=== PATIENT | male | born 1970 | race Caucasian/White ===

== ENCOUNTER 2018-07-14 19:44 | Emergency (ER) | payer OTHER ==
[2018-07-14 19:50] VITALS: BP 139/95
--- NOTE | 2018-07-14 20:08 | EDPHY ---
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 He states that he last used Ativan yesterday. He originally began taking it for anxiety but then began taking a recreationally up to about 10 pills per day. He has also been drinking alcohol and states that he stopped yesterday. He does not show any tremors or tachycardia. He states that he has had seizures from alcohol withdrawal before. He was in [facility] for 3 days last week but return to the substances after discharge. Severity: Moderate Modifying factors: Currently asymptomatic REVIEW OF SYSTEMS: Constitutional: denies: chills, fever, recent illness, recent injury EENTM: denies: blurred vision, double vision, nose congestion Respiratory: denies: cough, shortness of breath Cardiac: denies: chest pain, irregular heart rate, lightheadedness, palpitations Gastrointestinal/Abdominal: denies: abdominal pain, diarrhea, nausea, vomiting, blood streaked stools Genitourinary: denies: dysuria, frequency, hematuria, pain Musculoskeletal: denies: joint pain, muscle pain Skin: denies: lesions, rash, jaundice, bruising Neurological: denies: headache, numbness, paresthesia, tingling, dizziness, weakness Hematologic/Lymphatic: denies: blood clots, easy bleeding, easy bruising Immunologic/allergic: denies: HIV/AIDS, transplant 10 systems reviewed and negative except as noted EXAM: GENERAL: Well-appearing, well-nourished and in no acute distress. HEAD: Atraumatic, normocephalic. EYES: Pupils equal round and reactive to light, extraocular movements intact, sclera anicteric, conjunctiva are normal. ENT: TMs normal, nares patent, oropharynx clear without exudates. Moist mucous membranes. NECK: Normal range of motion, supple without lymphadenopathy or JVD. LUNGS: Breath sounds clear to auscultation bilaterally and equal. No wheezes rales or rhonchi. HEART: Regular rate and rhythm without murmurs, rubs or gallops. ABDOMEN: Soft, nontender, normoactive bowel sounds. No guarding, no rebound. No masses appreciated. BACK: No CVA tenderness, no spinal tenderness, step-offs or deformities EXTREMITIES: Normal range of motion, no pitting or edema. No clubbing or cyanosis. NEUROLOGICAL: Cranial nerves II through XII grossly intact. Normal speech, normal gait. 5/5 strength, normal movement in all extremities, normal sensation , normal reflexes PSYCH: Normal mood, normal affect. SKIN: Warm, dry, normal turgor, no visible rashes or lesions. Source: Patient Exam Limitations: No limitations - Personal History Current Tetanus/Diphtheria Vaccine: Yes Current Tetanus Diphtheria and Acellular Pertussis (TDAP): Yes - Medical/Surgical History Hx Asthma: No Hx Chronic Respiratory Disease: No Hx Diabetes: No Hx Cardiac Disease: No Hx Renal Disease: No Hx Cirrhosis: No Hx Alcoholism: No Hx HIV/AIDS: No Hx Splenectomy or Spleen Trauma: No Other PMH: alcohol seizures, high cholesterol - Family History Significant Family History: No pertinent family hx - Social History Smoking Status: Heavy smoker Alcohol Use: Heavy Drug Use: Other Constitutional: Initial Vital Signs Temperature (C) 36.5 C 07/14/18 19:48 Heart Rate 105 H 07/14/18 19:48 Respiratory Rate 20 07/14/18 19:48 Blood Pressure 139/95 H 07/14/18 19:48 O2 Sat (%) 98 07/14/18 19:48 O2 Delivery Mode Room Air Allergies/Adverse Reactions: No Known Allergies Allergy (Unverified 07/14/18 19:47) Home Medications: Medication Instructions Recorded NK [No Known Home Meds] 07/14/18 Medical Decision Making ED Course/Re-evaluation: preconstruction manager is not available and neither is mental health currently. Patient was recently at [facility]. Will calling them to see if he can return there to be evaluated for further treatment. 8:30 p.m we were able to contact [facility]. They state that they can make an appointment to me with him tomorrow. 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 We have been arranging this. The patient is happy with this plan. We discussed indications for returning. Differential Diagnosis: Partial list of the Differential diagnosis considered include but were not limited to; polysubstance abuse, withdrawal, and although unlikely based on the history and physical exam, I also considered head injury, infection. Departure - Departure Disposition: Home, Routine, Self-Care Clinical Impression: Polysubstance abuse Condition: Fair Instructions: Polysubstance Abuse (ED) Additional Instructions: Call [facility] at [phone] to set up an appointment. Referrals: NONE *PRIMARY CARE P,. [Primary Care Provider] - As per Instructions [facility],. [Clinic] - 2-3 days, call for appt.
== END 2018-07-14 20:40 | disposition home or self-care (01) ==
DX: F19.10 Other psychoactive substance abuse, uncomplicated (principal); F10.10 Alcohol abuse, uncomplicated; F17.200 Nicotine dependence, unspecified, uncomplicated

== ENCOUNTER 2018-07-17 15:00 | Inpatient (IN) | payer OTHER ==
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
[2018-07-17 15:38] LABS: PLATELET COUNT 293 10^3/uL (150-400)
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
--- NOTE | 2018-07-17 23:26 | ASMTTCLDSP ---
TLC Discharge Disposition Disposition: Answers: Admit Discharge Concerns/Recommendations: Notes: In consultation with [facility] ED physician,Dr Daugherty ,and on-call psychiatrist,Dr Hill , both concurred that Pt appears to meet 27-65 criteria requiring psychiatric hospitalization as Pt appears to be at risk of harm to self due to a mental illness condition. Pt was given the 3N prohibited belongings list while in the ED. Was patient given the Answers: Yes Inpatient Behavioral Health Prohibited Belongings List while in the ED? For inpatient Dr Hill admission, the following psychiatrist agreed to accept patient for admission to Behavioral Health ([facility]): Type of Hold: Answers: M1/72-hour Hold Hold initiated by: Answers: ED Physician Date Signed: 07/17/2018 11:25 PM Electronically Signed By:Luz Marina Elena
[2018-07-18] MEDS ORDERED: ACETAMINOPHEN 325 MG TAB PO PRN (01:00)
[2018-07-18] MEDS ORDERED: NICOTINE POLACRILEX 2 MG GUM B PRN (01:00)
[2018-07-18] MEDS ORDERED: MAGNESIUM HYDROXIDE 30 ML UDCUP PO PRN (01:00)
[2018-07-18] MEDS ORDERED: LORazepam 0.5 MG TAB PO PRN (01:00)
[2018-07-18] MEDS ORDERED: MAG HYDROX/AL HYDROX/SIMETH 30 ML UDCUP PO PRN (01:00)
[2018-07-18] MEDS ORDERED: OLANZapine 5 MG TAB PO PRN (01:01)
[2018-07-18] MEDS ORDERED: chlordiazePOXIDE 25 MG CAP PO PRN ×2 (09:16→11:48)
[2018-07-18] MEDS ORDERED: chlordiazePOXIDE 25 MG CAP PO SCH (11:05)
--- NOTE | 2018-07-18 13:00 | ASMTBHMTP ---
[facility] Master Treatment Plan Master Treatment Plan Answers: Depressed Mood with for: Suicidal Ideation Date: 07/18/2018 Diagnosis on Admission: Bipolar I Disorder, current or most recent episode depressed, severe 296.53 Expected length of stay: 3-5 Days Reason for admission: Notes: Pt. is a 47 year old, homeless, man who self-presented to the ED with a plan to cut his wrist with a razor blade. The ED physician placed him on an M1 hold. Per M1 hold, "pt is depressed, suicidal, probably off Depakote, homeless, substance abuse. Patient's stated presenting problems: Notes: Pt. reports he was feeling depressed and having thoughts of suicide Patient's goals for treatment: Notes: "Get back on medications" Patient's strengths: Notes: Generous Identify supports outside of hospital: Notes: [facility] Discharge criteria: Notes: Suicidal ideation will resolve and patient will have a plan to safely manage recurrent suicidal ideation. Initial disposition plan/considerations: Notes: Pt. stated he wants to take a bus to [place] Master Treatment Plan Required Signatures Psychiatrist signature: Answers: Psychiatrist: RN on-shift signature: Answers: RN: Patient signature: Answers: Patient: Date Signed: 07/18/2018 12:38 PM Electronically Signed By:Sari Menendez
--- NOTE | 2018-07-18 13:42 | BCON ---
INTERNAL MEDICINE CONSULTATION DATE OF CONSULTATION: 07/18/2018 REFERRING PHYSICIAN: Pattie Hill MD REASON FOR REFERRAL: Medical clearance for inpatient behavioral health stay. HISTORY OF PRESENT ILLNESS: This patient came to the emergency department with suicidal ideation. He was homeless. He had recently been inpatient at [facility]. He was evaluated by the mental health team and admitted for further psychiatric care. Currently, he is without any acute complaints. PAST MEDICAL HISTORY: 1. Bipolar disorder. 2. Dyslipidemia. 3. Alcohol use disorder. PAST SURGICAL HISTORY: He denies any surgeries. MEDICATIONS: He was on no medications, but in the past had been taking valproic acid and a medication for cholesterol. ALLERGIES: There are no known drug allergies. SOCIAL HISTORY: He is homeless and per the family service caseworker's note, he had been working in [place] and was traveling to [place]. He is a smoker, and he has a history of alcohol use disorder. FAMILY HISTORY: Noncontributory regarding medical issues. REVIEW OF SYSTEMS: He reports he feels a little bit shaky. He denies sweats. He has some nausea, but he has a good appetite. He denies constipation or diarrhea. There is no abdominal pain. He has no chest pain or palpitations. He denies cough or dyspnea. Otherwise, a 10-point review of systems is negative. PHYSICAL EXAM: VITAL SIGNS: Blood pressure is 130/78, heart rate is 92, respiratory rate is 16, oxygen saturation is 95% on room air, temperature is 36.7 degrees centigrade. His weight is 90.7 kg for a body mass index of 27.9. GENERAL: This is an overweight man. Sitting at the dining table, eating lunch. Dressed in a green hospital smock. Cooperative. In no acute distress. HEENT: Extraocular movements are intact. Pupils are equal, round, and reactive to light. Mucous membranes are moist. Dentition is in good condition. NECK: Supple. HEART: There is a regular rate and rhythm. He is tachycardic. LUNGS: Clear to auscultation bilaterally. ABDOMEN: Benign. EXTREMITIES: There is no cyanosis, clubbing, or edema. NEUROLOGIC: He is alert and oriented x3. He has a flat affect. Cranial nerves 2 through 12 are grossly intact. There is no focal weakness, and sensation is intact to light touch. LABORATORY STUDIES: From the emergency department: CBC was normal. Serum chemistries revealed normal renal function and electrolytes. Glucose was slightly elevated at 126, but it was likely not fasting. Hemoglobin A1c was 5.1. Liver function tests were normal. Lipid panel revealed elevated triglycerides at 298, elevated cholesterol at 217, elevated LDL at 115, and an HDL at 42. TSH was normal at 1.12. Toxicology screen in the serum was negative for ethyl alcohol, and the urine was non-negative for benzodiazepines, but otherwise negative for substances of abuse. ASSESSMENT/RECOMMENDATIONS: 1. Mental health issues pending further evaluation and management per Psychiatry and the mental health team. 2. Tachycardia of unclear etiology. He denies feeling thirsty. Labs are not consistent with dehydration. TSH is normal, so doubt hyperthyroidism. He may be in a low-level alcohol or benzodiazepine withdrawal state. Continue to monitor and consider management for alcohol or benzodiazepine withdrawal. 3. Dyslipidemia. As a smoker, his 10 year cardiovascular risk is 8.4%. If he were to quit smoking, his 10 year cardiovascular risk would be 3.3%. As a smoker, a high-dose statin is indicated for him, such as atorvastatin at 40 to 80 mg per day. If he were able to quit smoking, he would not meet criteria for statin. I will go ahead and order atorvastatin, which he can consider discontinuing if he is able to quit smoking. 4. Tobacco dependence. Encouraged smoking cessation. 5. Alcohol use disorder. He might benefit from specific substance abuse counseling. I see no medical contraindications to this patient's continued stay on the inpatient behavioral health unit or to any psychiatric medications or procedures. Thank you very much for including me in the care of this patient, and please do not hesitate to contact me or the hospitalist service should there be need for further medical evaluation. /[id number]/MODL MTDD
--- NOTE | 2018-07-18 14:05 | ASMTCMCOM ---
CM Note CM Note Notes: Pt. and CC completed MTP, signed and placed in chart. Pt. stated he wants to go to [place], [place]. Pt. stated all of his doctors are there and he can schedule appointments himself. Pt. agreed to let CC help with scheduling appointments. Pt. denied any current legal issues. Pt. stated he drinks alcohol three times a week and usually binge drinks beer or whiskey. Pt. stated "not really" to using THC, adding he can't remember the last time he used THC. Pt. denied all other substance use. Pt. denied SI, HI, and AVH. Pt. reported some paranoia about "don't know about what". Staff report pt. sleeping 7 hours and being medication compliant. Pt. has spent most of the day resting in bed. Date Signed: 07/18/2018 02:04 PM Electronically Signed By:Sari Menendez
--- NOTE | 2018-07-18 16:59 | BAPA ---
DATE OF SERVICE: 07/18/2018 REASON FOR ADMISSION: Patient is a 47-year-old male admitted after presenting to the emerg ency department reporting suicidal ideation. He has a history of homelessness and alcoholism and arr ived in [place] about 2 weeks ago by his report. He states that he "started drinking hard" when he a rrived and did not complete his trip to [place] as previously planned. He presented to [facility] on 07/10/2018, reporting suicidal ideations and apparently spent 3 days there. He was then returned to the street and came to our facility on 07/18/2018, reporting recurrent thoughts of s uicide. Today, he states that he has been treated for "mood swings" in the past with Depakote, but d enies previous treatment with antidepressants. He has not recently been taking his Depakote, though he does not describe symptoms of gloria. He states he is out of money and his primary stress at this time is purchasing a bus ticket to continue on to [place]. He reports drinking at least a pint a da y of hard alcohol, but states he has not drunk any in the past 3 days. He states he feels anxious an d is noted to be tremulous, but in his opinion is not in withdrawal. He denies any history of major alcohol withdrawal seizures or DTs. The patient states that he considers [place] his home but only has 1 aunt who lives there. He does have previous providers whom he saw in the past there. He state s he has no other supports locally and no connection with any providers here. He denies thoughts of suicide at this time. PAST PSYCHIATRIC HISTORY: Largely as above. He has history of mood swings, treated with Depakote. Denies other psychotropic medicines. He states that he has had suicidal thoughts in the past. Richardie s previous attempts, was most recently in [facility] for 3 days. ALLERGIES: No known medical allergies. CURRENT MEDICATIONS: None. PAST MEDICAL HISTORY: Noncontributory per patient report. He specifically denies any history of sei zures or cardiac problems. SOCIAL HISTORY: Patient is homeless, originally from [place]. He has no local supports and n o family with whom he is close. 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 He denies any legal problems o r other stresses, though states he has no money. SUBSTANCE ABUSE HISTORY: Patient states he drinks a pint of alcohol a day. He has a past history of cocaine use, though denies recent use. Denies other drug use at this time. There was some report i n the chart that he was using benzodiazepines, though he does not confirm or deny that at this time. FAMILY HISTORY: Patient states there is family history domestic violence and alcoholism. ADMISSION LABORATORY: CBC is normal. Serum chemistries are normal with the exception of a nonfastin g glucose of 126, triglycerides up to 298, cholesterol of 217. Liver function is normal. Hemoglobin A1c is normal at 5.1. TSH is normal at 1.12. Urine drug screen is positive for benzodiazepines, th ough it is unclear whether this was before or after he reached the emergency department. Alcohol is less than detectable. MENTAL STATUS EXAMINATION: Reveals a healthy-appearing male. He is lying in hospital bed wearing hospital garb. He is asleep but awakens easily and interacts well with the examiner. He is slightly tremulous both centrally and peripherally, though does not have hyperreflexia, flushing, or sweating. He maintains good eye contact and is attentive for the purposes of the interview. His aff ect is constricted and anxious. His mood is described as "not too good." Thought process is linear and goal directed. His thought content reveals no evidence of psychosis. He specifically denies any auditory, visual or tactile hallucinations, or other perceptual disturbances. He is alert and orien alondra to person, place, time, and situation, and his sensorium is clear. There is no evidence of delir ium, withdrawal, or intoxication. His intellect appears to be average as evidenced by his educationa l and occupational history, fund of knowledge, and vocabulary. He denies any thoughts of suicide at this time. His insight and judgment appear to be fair to good. IMPRESSION: Alcohol use disorder, severe, homelessness, suicidal thoughts, lack of social supports, lack of financial resources. The patient is a 47-year-old male who presents due to recurrent thoughts of suicide in the setting of homelessness and lack of resources. He does not have a convincing history of true mood di sorder and does not have evidence currently of unstable mood episode. He does appear to be tremulous , and this could be minor alcohol withdrawal. PLAN: 1. Admit to behavior health services inpatient unit on an M1 hold. 2. Convert M1 hold to voluntary status. 3. Will schedule Librium taper starting today at 25 t.i.d. and going to 25 b.i.d. tomorrow. He is m ore than 72 hours after his last drink, and the utility of placing him on a full CIWA protocol is pro bably limited. 4. Will provide individual, group, and milieu psychotherapies and serial clinical interviews to best understand his underlying mood issue and monitor his suicidality. 5. We will work with patient to create a safe discharge plan. ESTIMATED LENGTH OF STAY: 3-5 days. /[id number]/MODL
--- NOTE | 2018-07-18 17:32 | PDMN ---
Medical Necessity Medical necessity: Pt meets inpt criteria per MD order and [facility] B-015-IP, Substance-Related Disorders, Adult: Inpatient Care, 2 days. 47 y/o on M1 Hold due to suicidal ideation admitted w/alcohol use disorder, severe, homelessness, suicidal thoughts, lack of social and financial supports requiring inpt psychiatric hospitalization.
[2018-07-18] MEDS: ATORVASTATIN CALCIUM 40 MG TAB PO SCH (20:19)
[2018-07-19] MEDS: chlordiazePOXIDE 25 MG CAP PO SCH ×2 (09:10→20:26)
[2018-07-19] MEDS: ATORVASTATIN CALCIUM 40 MG TAB PO SCH (09:10)
--- NOTE | 2018-07-19 11:57 | ASMTCMCOM ---
CM Note CM Note Notes: CC spoke to client briefly during check-in. Client presents as semi-alert, affect appropriate towards situation. Client denies any feelings of anxiety, depression, S/I-H/I or AVH. Client suggests sleeping 10+ hours last night. Additionally, client claims his goal for today is to "take my medicaitons." CC will need to speak to MD about bus ticket information (when he might discharge, etc.) before filling out [employer] form due to martinez changes, etc.* Date Signed: 07/19/2018 11:56 AM Electronically Signed By:Jeremy Limon
--- NOTE | 2018-07-19 16:02 | SOAPPROG ---
SOAP Progress Note Assessment/Plan: Assessment: 47 yo homeless man who traveled from [place] to [place], recently d/c'd from [facility] where he was treated for alcohol w/d, admitted to in alcohol w/d. Denies any SI/HI. Plan: 07/19/18 15:58 1. Patient wants bus ticket to go back to [place] where his family lives. 2. Dr. Pelaez started patient on Librium 25mg BID for alcohol w/d. Patient also has Librium 25m TID PRN for breakthrough sxs. 3. Patient denies any physical complaints. He appears diaphoretic, but denies any other sxs of alcohol w/d. 4. BP has been elevated, but patient has h/o HTN which is untreated, likely exacerbated by ETOH w/d. His HR has been WNL. 5. Change legal status to voluntary when hold expires. Subjective: Patient is lying in bed covered with blanket. Patient has slight tremor in both hands, but denies any other sxs of w/d. His HR was around 100 at lunch time, but has been stable since admission. He reports "really good sleep" last night, and has continued to sleep most of the day. He did get up and go to dining area for breakfast and lunch. He reports appetite is "good," he ate 100% of all meals and denies any N/V. Patient states he is "just passing through" [place] and wants to return to [place] where he's from [facility], but has no money for bus ticket. Objective: Vital Signs Temp Pulse Resp BP Pulse Ox 36.4 C 100 18 127/92 H 97 07/19/18 12:36 07/19/18 12:36 07/19/18 12:36 07/19/18 12:36 07/19/18 12:36 MSE: Affect: Euthymic Mood: "Good" TP: Linear TC: Denies any SI/HI Insight/ Judgment: Poor a/e/b ETOH intoxication - Time Spent With Patient Time Spent With Patient: 15" - Pending Discharge Pending Discharge Within 24 Hours: No Pending Discharge Within 48 Hours: Yes Pending Discharge Date: 07/21/18 (Likely to d/c on Saturday) Pending Discharge Time: 11:00 ICD10 Worksheet Patient Problems: Problems Problem Status Onset Suicidal ideation Acute
[2018-07-20] MEDS: ATORVASTATIN CALCIUM 40 MG TAB PO SCH (09:04)
[2018-07-20] MEDS: chlordiazePOXIDE 25 MG CAP PO SCH ×2 (09:05→19:00)
--- NOTE | 2018-07-20 12:31 | ASMTCMCOM ---
CM Note CM Note Notes: The patient requested to see the operations manager; the operations manager was paged and they notified [facility] staff of their plan to see the patient later today. The patient reported that he is "doing good" today. He requested housing resources upon discharge. Date Signed: 07/20/2018 12:31 PM Electronically Signed By:Harriett Ibrahim
--- NOTE | 2018-07-20 17:39 | SOAPPROG ---
SOAP Progress Note Assessment/Plan: Assessment: 47 yo homeless man who traveled from [place] to [place], recently d/c'd from [facility] where he was treated for alcohol w/d, admitted to in alcohol w/d. Denies any SI/HI. Plan: 07/19/18 15:58 1. Patient wants bus ticket to go back to [place] where his family lives. 2. Dr. Pelaez started patient on Librium 25mg BID for alcohol w/d. Patient also has Librium 25m TID PRN for breakthrough sxs. 3. Patient denies any physical complaints. He appears diaphoretic, but denies any other sxs of alcohol w/d. 4. BP has been elevated, but patient has h/o HTN which is untreated, likely exacerbated by ETOH w/d. His HR has been WNL. 5. Change legal status to voluntary when hold expires. PLAN: 07/20/18 17:36 1. Patient denies any w/d sxs. 2. Present in milieu more and participating in groups. 3. Change to voluntary. Subjective: Patient has had more energy and feels "better" today. He is present in milieu, more alert, participating in group therapy and milieu activities. He denies any w/d sxs, does not have tremors or sweating that MD noticed yesterday. Patient would like to return to [place] after discharge, but doesn't have money for bus ticket. Objective: Vital Signs Temp Pulse Resp BP Pulse Ox 36.6 C 80 15 124/78 H 94 07/20/18 06:00 07/20/18 06:00 07/20/18 06:00 07/20/18 06:00 07/20/18 06:00 MSE: Affect: Euthymic Mood: "OK" TP: Linear TC: Denies SI/HI Insight/ Judgment: Fair - Time Spent With Patient Time Spent With Patient: 15" - Pending Discharge Pending Discharge Within 24 Hours: Yes Pending Discharge Within 48 Hours: No Pending Discharge Date: 07/21/18 (Likely to d/c on Saturday ) Pending Discharge Time: 11:00 ICD10 Worksheet Patient Problems: Problems Problem Status Onset Suicidal ideation Acute
[2018-07-21] MEDS ORDERED: ATORVASTATIN CALCIUM 40 MG TAB PO SCH
[2018-07-21] MEDS: ATORVASTATIN CALCIUM 40 MG TAB PO SCH (08:55)
[2018-07-21] MEDS ORDERED: chlordiazePOXIDE 25 MG CAP PO SCH (09:00)
--- NOTE | 2018-07-21 09:20 | SOAPPROG ---
SOAP Progress Note Assessment/Plan: Assessment: Alcohol Use Disorder, Severe. Improved. Plan for discharge tomorrow. Patient could benefit from continued inpatient hospitalization for crisis stabilization , safety, and medication evaluation. Plan: 1. Psychotropic medications: After reviewing options, risks, and benefits patient agrees to continue current medications with following changes: decrease Librium to 25 mg po QD for taper; discontinue Librium PRN. No other medication changes at this time as more time is needed to determine ongoing tolerability and efficacy. Plan is to continue to observe patient for response and side effects from medications, and ongoing monitoring and evaluation. 2. Review with patient informed consent and recommendations for psychotropic medication treatment listed below 3. Labs: no additional labs at this time 4. Therapy: continue milieu and group therapy 5. Further investigation including gathering information from patients relatives and review of past case records to inform treatment plan. 6. Safety/Wellness plan and follow-up outpatient appointments to be established prior to discharge. Next steps are for patient to meet with rn care manager to plan a safe discharge plan and establish outpatient services for ongoing treatment. 7. Confer with inpatient treatment team regarding treatment plan. 8. Psychosocial stressors addressed through case manager specialist 9. Legal status: voluntary 10. Consider discharge on Saturday if patient is in stable condition, safe, and has a safe discharge plan. 11. Substance abuse interventions: alcohol PSYCHOTROPIC MEDICATION TREATMENT INFORMED CONSENT and RECOMMENDATIONS: Review nature of condition, diagnosis, and prognosis. Review nature and purpose of psychotropic medication treatment. Review type of psychotropic medications being ordered. Review risk and benefits of psychotropic medication treatment. Review probable length of time patient will need to take medications. Review risk and benefits of not undergoing psychotropic medication treatment. Review alternative treatments to psychotropic medications. Review psychotropic medications contraindications, drug-drug interactions, side effects, and importance of reporting any side effects to a psychiatric provider or nurse during inpatient hospitalization, and upon discharge to patients psychiatric outpatient provider, primary care provider, or other health animal caregiver. Review importance of asking a nurse, psychiatric provider, or primary care provider any questions or problems concerning the psychotropic medications. Verify patient understands the information that has been provided, and understands, accepts, and agrees to psychotropic medications. Review patients safety plan and importance of patient to report to staff while hospitalized if patient is ever a danger to self/others, or unable to care for self, and upon discharge, the importance for patient to contact [facility] or [facility], or go to the nearest emergency room, if patient is ever a danger to self/others, or unable to care for self. Recommend that upon discharge patient establish medication management treatment with a psychiatric provider, establishes routine therapy appointments, and follow-up with primary care provider. Verify patient understands and agrees to these recommendations. 07/21/18 09:18 Subjective: Following up with patient for evaluation of depression, anxiety, and safety. Patient reports, "Doing a little, better, got some rest." Patient expresses the following psychiatric symptoms none. Patient describes getting 8 hours of sleep, and reports feeling rested today. Patient reports no symptoms of alcohol withdrawal and agrees to decrease Librium to 25 mg po QD for taper and discontinue Librium PRN. Patient requests assistance with transportation to [place], [place] to be near his family. Objective: Vital Signs Temp Pulse Resp BP Pulse Ox 36.2 C 67 15 113/68 94 07/21/18 06:00 07/21/18 06:00 07/21/18 06:00 07/21/18 06:00 07/21/18 06:00 NURSING REPORT: Consulted with nursing for update on patients progress in treatment. Nurses report patient is not engaged in treatment, is not attending groups, spends majority of time in bed sleeping; slept 8 hours, expresses the following psychiatric symptoms: none, exhibits the following psychiatric symptoms: withdrawn, flat affect; is eating all meals, and denies SI/HI, denies A/V hallucinations, and denies delusions. SUPERVISOR FEED HOUSE UPDATE: currently planning safe discharge. SUBSTANCE ABUSE BRIEF INTERVENTION: Brief intervention regarding the risks of alcohol abuse is provided to patient with goal to reduce the risk of harm that could result from the continued use of alcohol, with the general aim to investigate the problem, raise awareness of problem, develop a solution with the patient, recommend a specific change or activity, and motivate the patient toward change. Assess substance abuse behavior and give supportive advice about harm reduction, recommend a reduction in hazardous/at-risk consumption patterns, and facilitate referrals for additional specialized treatment with palliative care specialist. Intermediate goal is for the patient to quit and attend outpatient substance abuse treatment. Intervention focus on intermediate goals to allow for more immediate success in the treatment process to keep the patient motivated. Review following with patient: Alcohol/Binge Drinking risks : short-term: injuries, violence, alcohol poisoning, risky sexual behaviors. Long-term: high blood pressure, stroke, liver disease, digestive problems, cancer, learning and memory problems, depression and anxiety, social problems, and alcohol dependence. OUTPATIENT SUBSTANCE ABUSE TREATMENT: Patient referred to outpatient provider and treatment for continued treatment related to substance abuse. MSE: The patient presents casually dressed and with good hygiene, and looks stated age. Patient is sitting, posture is upright, and position is relaxed. Patient appears awake, alert, and responds appropriately and reasonably during interview. Patient is engaged, relates well to interviewer, and emotional facial expression is appropriate to situation and changes appropriately with topic. Patient is cooperative, makes comfortable eye contact, and movements are voluntary, deliberate, coordinated, and smooth and even with no inappropriate movements. Patient makes laryngeal sounds effortlessly and shares conversation appropriately; pace of conversation is appropriate, and stream of talking is fluent; articulation is clear and understandable; word choice is effortless and appropriate for education level; completes sentences, occasionally pausing to think; rate and volume are appropriate for interview and setting. Patient reports mood as euthymic. Patients affect is stable with full variable range, congruent with mood, and appropriate to speech and circumstances. Patient has linear and logical thinking, with no loose associations, tangential thought, thought blocking, concrete thinking, or any other signs of formal thought disorder. Patient denies suicidal and homicidal ideation, and denies hallucinations and delusions. Patient appears to be a fair historian with fair judgement and poor insight into current condition. Patient has no apparent dysfunction in recent or remote memory noted, and no evidence of gross cognitive dysfunction noted at any point during the interview. - Time Spent With Patient Time Spent With Patient: 15 minutes, met with patient individually. - Pending Discharge Pending Discharge Within 24 Hours: Yes Pending Discharge Within 48 Hours: No Pending Discharge Date: 07/22/18 Pending Discharge Time: 11:00 ICD10 Worksheet Patient Problems: Problems Problem Status Onset Suicidal ideation Acute
--- NOTE | 2018-07-21 12:58 | ASMTBHDC ---
Notes Note: Notes: Pt. reports feeling "okay, just waking up". Pt. reports he slept "good", and is eating well. Pt. reports attending groups. Pt. reports no issues with his current medications. Pt. stated he weekend went "pretty good, went to art groups". Pt. stated he wants to discharge and take a bus to [place]. Pt. stated he can setup his own follow up appointments in [place], adding it will only take him a few days to setup. Pt. stated he can fill and take his medications. Pt. denied SI, HI, AVH and paranoia. Staff report pt. sleeping 11.5 hours and being medication compliant. [facility] Saturday07/22/18. Date Signed: 07/21/2018 12:58 PM Electronically Signed By:Sari Menendez
[2018-07-21 16:49] VITALS: BP 127/73
[2018-07-22] MEDS ORDERED: ATORVASTATIN CALCIUM 40 MG TAB PO SCH
--- NOTE | 2018-07-22 10:03 | BDS ---
REASON FOR ADMISSION: From the ED note dated 07/17/2018, patient presented to the emergency room with suicidal ideation with plan to cut his wrists with a razor blade. The patient is homeless, has a history of depression. Patient reports he is trying to get from [place], [place] to [place]. The patient reported being stranded in [place], [place], did not have any money, and had been drinking alcohol. The patient reported he decided to come to the emergency room because he felt more suicidal and more depressed. The patient was admitted involuntarily on an M1 hold due to being a danger to himself. The patient was admitted for safety, crisis stabilization, and medication management. ADMITTING DIAGNOSES: 1. Alcohol use disorder, severe. 2. R/O malingering. ADMISSION PHYSICAL EXAM: Patient was seen on 07/18/2018, for an internal medicine consultation for medical clearance for inpatient psychiatric hospitalization and treatment. The patient was medically cleared for inpatient psychiatric hospitalization and treatment. For further details, please refer to consultation note dated 07/18/2018. ADMISSION LABS: CBC from 07/17/2018, within normal limits. BMP from 07/17/2018 , within normal limits, except glucose was elevated at 126. Hemoglobin A1c was within normal limits at 5.1, from 07/17/2018. Liver function from 07/17/2018, within normal limits. Lipid panel from 07/17/2018, within normal limits, except triglycerides were elevated at 298. Cholesterol was elevated at 217. Cholesterol risk factor was elevated at 1.2. LDL cholesterol calculated was elevated at 115. VLDL cholesterol was elevated at 60. Non-HDL cholesterol was elevated at 175. Cholesterol/HDL ratio was elevated at 5.17. TSH from 2017, was within normal limits at 1.120. Toxicology screen from 07/17/2018, was non-negative for benzodiazepines, negative for all other substances tested and negative for ethyl alcohol. MAJOR PROCEDURES OR TESTS: None. HOSPITAL COURSE: The most prominent symptoms and behaviors while the patient was here were reports of mild depression and mild anxiety. The patient was withdrawn to his room, spent the majority of his time sleeping in his room, was up for meals. Patient did attend to his ADLs appropriately and independently. Treatment modalities utilized were milieu and group therapy. Librium was started to target alcohol withdrawal symptoms, was tolerated with no report of side effects and with good response. Librium was safely tapered and discontinued prior to patient discharging. Patient has improved considerably, with no signs of psychiatric symptoms and no psychiatric symptoms expressed at time of discharge. Patient reports he has improved since admission, states to be in stable condition, feels safe to discharge, and he contracts for safety. Patient's response to treatment was good. There were no adverse or unexpected results of treatment. The patient was safe throughout his stay and was appropriate with staff and other patients. The treatment team consensus is the patient is in stable condition, has a safe discharge plan, and is ready to discharge today. CONDITION ON DISCHARGE: Patient is in stable condition and is no longer a danger to self or others, and is not gravely disabled due to mental illness. Patient is no longer in need of inpatient level of care, and can be safely and effectively treated within the community. The patients level of risk at time of discharge is low. MSE: The patient is casually dressed and with good hygiene , and looks stated age. Patient is sitting, posture is upright, and position is relaxed. Patient appears awake, alert, and responds appropriately and reasonably during interview. Patient is engaged, relates well to interviewer, and emotional facial expression is appropriate to situation and changes appropriately with topic. Patient is cooperative, makes comfortable eye contact , and movements are voluntary, deliberate, coordinated, and smooth and even with no inappropriate movements. Patient makes laryngeal sounds effortlessly and shares conversation appropriately; pace of conversation is appropriate, and stream of talking is fluent; articulation is clear and understandable; word choice is effortless and appropriate for education level; completes sentences, occasionally pausing to think; rate and volume are appropriate for interview and setting. Patient reports mood as euthymic. Patients affect is stable with full variable range, congruent with mood, and appropriate to speech and circumstances. Patient has linear and logical thinking, with no loose associations, tangential thought, thought blocking, concrete thinking, or any other signs of formal thought disorder. Patient denies suicidal and homicidal ideation, and denies hallucinations and delusions. Patient appears to be a reliable historian with sound judgement and good insight into current condition. Patient has no apparent dysfunction in recent or remote memory noted , and no evidence of gross cognitive dysfunction noted at any point during the interview. DISCHARGE DIAGNOSES: 1. Alcohol use disorder, severe. 2. Malingering. CURRENT MEDICATIONS: After reviewing options, risks, and benefits with the patient, the patient states that he does not need to be on medications at this time. The patient reports no signs or symptoms of alcohol withdrawal and reports mild anxiety and depression. The patient reports he plans to follow up with his providers in [place] for ongoing medication evaluation and monitoring. Patient requests a prescription for Lipitor 40 mg p.o. daily. Prescription is provided for 30 days. The prescription is reviewed with the patient at time of discharge to ensure accuracy and patient understanding. DISPOSITION: The patient left hospital independently and voluntarily with RN. RN walked the patient to the bus stop. The patient plans on taking the bus to [place] and [facility] [place]. FOLLOWUP: visitor services coordinator reports the appropriate outpatient follow-up services have been established and outpatient appointments have been scheduled. The patient received written instructions with times and dates of outpatient follow-up appointments. The following follow-up recommendations were provided to the patient at discharge: Continue psychotropic medications as prescribed and attend appointments as scheduled. Report any side effects to a psychiatric outpatient provider, a primary care provider, or other health career technical counselor. Address any questions or problems concerning the psychotropic medications with a psychiatric outpatient provider, a primary care provider, or other health career technical counselor. Contact [facility] or [facility], or go to the nearest emergency room, if you are ever a danger to yourself/others, or unable to care for yourself. As soon as possible, establish a routine medication management treatment with a psychiatric provider, establish routine therapy appointments, and follow-up with a primary care provider. SUBSTANCE ABUSE BRIEF INTERVENTION: Brief intervention regarding the risks of alcohol abuse is provided to patient with goal to reduce the risk of harm that could result from the continued use of alcohol, with the general aim to investigate the problem, raise awareness of problem, develop a solution with the patient, recommend a specific change or activity, and motivate the patient toward change. Assess substance abuse behavior and give supportive advice about harm reduction, recommend a reduction in hazardous/at-risk consumption patterns, and facilitate referrals for additional specialized treatment with career services officer. Intermediate goal is for the patient to quit and attend outpatient substance abuse treatment. Intervention focus on intermediate goals to allow for more immediate success in the treatment process to keep the patient motivated. Review following with patient: Alcohol/Binge Drinking risks : short-term: injuries, violence, alcohol poisoning, risky sexual behaviors. Long-term: high blood pressure, stroke, liver disease, digestive problems, cancer, learning and memory problems, depression and anxiety, social problems, and alcohol dependence. OUTPATIENT SUBSTANCE ABUSE TREATMENT: Patient referred to outpatient provider and treatment for continued treatment related to substance abuse. LEGAL COURSE: The patient was admitted involuntarily for inpatient psychiatric hospitalization. Patient became voluntary during his stay. Patient discharged today independently and voluntarily. ATTITUDE AT TIME OF DISCHARGE: The patients attitude was positive at time of discharge, and patient reports looking forward to discharging today. The patient reports he feels safe to discharge, is no longer a danger to himself or others, is in stable condition, and contracts for safety. Patient states he will continue medications as prescribed, and establish medication management treatment with an outpatient provider after discharge. Patient reports he understands the information that has been provided to him, and he understands, accepts, and agrees to psychotropic medications. Patient describes internal protective factors as the coping skills he has learned while hospitalized here, and he plans to continue to practice these coping skills after discharge. LABS AND STUDIES: There were no pending labs or studies at time of discharge. ADVANCE DIRECTIVES: There were no advance directives on file, and patient was full code during this hospitalization. The following treatment informed consent and recommendations were provided to the patient at time of discharge. Patient reports he understands, accepts, and agrees to the information that has been provided. TREATMENT INFORMED CONSENT and RECOMMENDATIONS: Review nature of condition, diagnosis, and prognosis. Review nature and purpose of medication treatment. Review type of medications being prescribed. Review risk and benefits of medication treatment. Review probable length of time will need to take medications. Review risk and benefits of not undergoing medication treatment. Review alternative treatments to medications. Review medications contraindications, side effects, and importance of reporting any side effects to a psychiatric provider, primary care provider, or other health career technical counselor. Review importance of asking a psychiatric provider or primary care provider any questions or problems concerning medications. Review safety plan and the importance to contact [facility] or [facility] , or go to the nearest emergency room, if ever a danger to yourself/others, or unable to care for yourself. Recommend upon discharge to establish routine medication management treatment with a psychiatric provider, establish routine therapy appointments, and follow-up with a primary care provider. Verify patient understands, accepts, and agrees to the information that has been provided. /[id number]
== END 2018-07-22 05:30 | disposition home or self-care (01) | DRG 880 ==
LOC: BBEH 07-18 00:45
PROVIDERS: ADMIT Psychiatry & Neurology Behavioral Neurology & Neuropsychiatry; ATTEND Psychiatry & Neurology Psychiatry
PROC: HZ2ZZZZ Detoxification Services for Substance Abuse Treatment (ICD-10-PCS; principal; 2018-07-18)
DX: R45.851 Suicidal ideations (principal); F10.230 Alcohol dependence with withdrawal, uncomplicated; Z76.5 Malingerer [conscious simulation]; Z59.0 Homelessness; Z59.6 Low income; Z73.89 Other problems related to life management difficulty; E78.5 Hyperlipidemia, unspecified; F17.210 Nicotine dependence, cigarettes, uncomplicated
CPT/HCPCS: 80305; G0480